=== PATIENT | male | born 1995 | race Caucasian/White ===

== ENCOUNTER → 2017-01-26 | Outpatient (CLI) | payer BC, OTHER | LOC: COL.VAS 08:53 | DX: Z13.6 Encounter for screening for cardiovascular disorders (principal); I10 Essential (primary) hypertension; R94.31 Abnormal electrocardiogram [ECG] [EKG] ==

== ENCOUNTER → 2021-01-25 | Outpatient (CLI) | payer OTHER | LOC: COL.RAD 01-22 13:15 | DX: S43.432A Superior glenoid labrum lesion of left shoulder, initial encounter (principal); M19.011 Primary osteoarthritis, right shoulder; Z98.890 Other specified postprocedural states | CPT/HCPCS: A9585; Q9967 ==